=== PATIENT | male | born 1980 | race Caucasian/White ===

== ENCOUNTER 2016-10-03 16:20 | Emergency (ER) | payer OTHER ==
[2016-10-03 16:38] VITALS: RESP 16; O2SAT 96
[2016-10-03] MEDS ORDERED: MECLIZINE HCL 12.5 MG TAB PO ONE (16:55)
[2016-10-03] MEDS ORDERED: NS 1,000 ML IV ONE (16:56)
--- NOTE | 2016-10-03 17:01 | EDPHY ---
General - History Smoking Status: Never smoked Narrative: CHIEF COMPLAINT: Possible reaction to marijuana. HISTORY OF PRESENT ILLNESS: Patient ingested for good areas of marijuana this afternoon around 2:00 p.m.. Soon after this, he began to feel very "weird." Said that he had difficulty moving, and shortness of breath and felt very abnormal for him. His spouse is with him and was concerned about how he looked : Ambulance. He said he did not have any chest pain but he was feeling short of breath and very somnolent. No abdominal or urinary complaints. No headache. He does have some dizziness and lightheadedness. Symptoms were moderate at the time and have steadily improved without any intervention. There were no predictable exacerbating factors. He has used medicinal marijuana in the past but not in the past year. He has had several adverse reactions to marijuana in the past that are similar to this as well. No other associated complaints or modifying factors. REVIEW OF SYSTEMS: Ten systems reviewed and are negative unless otherwise noted in the HPI PERTINENT MEDICAL HISTORY: EXAMINATION General Appearance: Alert, no distress Head: normocephalic, atraumatic Eyes: Pupils equal and round, no conjunctival pallor or injection . EOMs intact. ENT, Mouth: Mucous membranes moist . Uvula midline. No erythema or edema Neck: Normal inspection, supple, non-tender. No rigidity or meningismus. Painless range of motion all planes. Respiratory: Lungs are clear to auscultation. No wheezing, rhonchi or crackles. Cardiovascular: Regular rate and rhythm . No murmur. Pulses intact distally. Gastrointestinal: Abdomen is soft and nontender . No tympany rigidity Back: non-tender, no bony abnormalities Neurological: alert and oriented to person and place. Intermittently disoriented to time. Cranial nerves 2-12 grossly intact. No focal deficits. Strength is symmetric in all limbs. No dysmetria. Normal [id number]. No pronator drift. Skin: Warm and dry, no rash Extremities: Nontender, no pedal edema . Symmetric range of motion all 4 limbs. Psychiatric: Mood and affect normal DIFFERENTIAL DIAGNOSES: Including but not limited to Marijuana intoxication, adverse drug reaction, intoxication MDM: 4:55 p.m. patient is here after ingestion of marijuana this afternoon. His symptoms are consistent with the use of marijuana. He seems to have had an adverse reaction to this. The time of my examination, he is somnolent and slow with his speech, consistent with marijuana ingestion. His vital signs are stable. There are no focal deficits. He is conversing appropriately and in no acute distress. I will monitor him to make sure this continues. I do not feel that he needs any interventions at this time. 6:05 p.m. I have re-evaluated the patient 3 times including right now. Each time he has been more awake, exhibiting left signs of marijuana intoxication. He is conversing completely appropriately at this time. He has normal and full mental status. He is alert and oriented x4. We discuss the fact that he may need to reconsider his use of marijuana or at least start with a lower dosing. He and his spouse will discuss this in detail home. I do feel he is stable for discharge home at this time without any further intervention. I have answered all their questions and they are happy with their care. Discharged home stable condition follow up with primary care physician upon return home to [place]. SUPERVISION: This patient was independently evaluated without the aide of supervising physician. Case discussed with Dr. Mack ([facility]) Medical Decision Making: I did not see this patient while he was in the emergency department. However his care was discussed with the PA while the patient was in the department. I agree with treatment plan and management (Jhony Mack) - Objective Vital Signs: Initial Vital Signs Temperature (C) 36.8 C 10/03/16 16:20 Heart Rate 80 10/03/16 16:20 Respiratory Rate 16 10/03/16 16:20 Blood Pressure 160/100 H 10/03/16 16:20 O2 Sat (%) 96 10/03/16 16:20 O2 Delivery Mode Room Air Allergies/Adverse Reactions: haloperidol [From Haldol] Allergy (Verified 10/03/16 16:38) haloperidol lactate [From Haldol] Allergy (Verified 10/03/16 16:38) Home Medications: Medication Instructions Recorded LAMOTRIGINE 10/03/16 Propranolol Sr 10/03/16 Medications Given: Discontinued Medications Sodium Chloride (Ns) 1,000 mls @ 0 mls/hr IV ONCE ONE PRN Reason: Wide Open Stop: 10/03/16 16:57 Last Admin: 10/03/16 17:15 Dose: 1,000 mls Meclizine HCl (Meclizine Hcl) 12.5 mg PO EDNOW ONE Stop: 10/03/16 16:56 Last Admin: 10/03/16 17:16 Dose: Not Given Ondansetron HCl (Zofran) 4 mg IVP EDNOW ONE Stop: 10/03/16 16:56 Last Admin: 10/03/16 17:17 Dose: Not Given Departure - Departure Disposition: Home, Routine, Self-Care Clinical Impression: Marijuana intoxication, Adverse reaction to drug Condition: Good Instructions: Medicinal Use of Cannabis (ED) Additional Instructions: Increased fluid intake this evening. follow-up with primary care physician upon return home. Return to the ER for return of symptoms Referrals: Patient,NotPresent [Unknown] - As per Instructions Angelina Govea MD [Medical Doctor] - As per Instructions
[2016-10-03] MEDS: ONDANSETRON 4 MG/2 ML VIAL IVP ONE ×2 (17:16→17:17)
[2016-10-03 18:24] VITALS: BP 126/81; PULSE 92; TEMP 98.4
== END 2016-10-03 18:24 | disposition home or self-care (01) ==
LOC: EDUNIT# → EDAGE → EDBD 16:20
DX: F12.120 Cannabis abuse with intoxication, uncomplicated (principal); T40.7X5A Adverse effect of cannabis (derivatives), initial encounter